=== PATIENT | male | born 1985 | race Caucasian/White ===

== ENCOUNTER 2017-12-03 21:02 | Emergency (ER) | payer MEDICAID ==
[2017-12-03 21:19] VITALS: BP 159/91
[2017-12-03] MEDS ORDERED: DOXYCYCLINE 100 MG PREPACK#2 BTL TAKEHOME ONE (21:21)
[2017-12-03] MEDS ORDERED: DOXYCYCLINE HYCLATE 100 MG CAP/TAB PO ONE (21:25)
[2017-12-03] MEDS ORDERED: ALTEPLASE 100 MG/100 ML VIAL IV ONE (21:28)
--- NOTE | 2017-12-03 21:28 | EDPHY ---
H & P Stated Complaint: dog bite 25 min color dipper, tetanus utd. Time Seen by Provider: 12/03/17 21:08 HPI/ROS: Chief Complaint: Dog bite HPI: 32-year-old male got bit on the right hand by a friend's dog approximately 30 min ago. Was told that the dog is up-to-date on his vaccinations. He is currently taking doxycycline once a day as malaria prophylaxis. He just returned from a trip to [place]. He is up-to-date in his tetanus. He is complaining some mild pain in his right hand. ROS: 10 systems were reviewed and were negative except those elements noted in the HPI. PMH: Denies Social History: No smoking Family History: non-contributory Physical Exam: General: Awake, alert, no acute distress Right hand: Patient has a small puncture wound in the webspace between his thumb and index finger. There is also an overlying abrasion. There is no tissue loss. He has no bony tenderness. He has full flexion and extension of his thumb and forefinger. There is no tenderness along the tendon sheath. There is no erythema. There is no discharge. Sensations intact in all dermatomes. He has 2+ capillary refill. Skin: No rash - Personal History Current Tetanus Diphtheria and Acellular Pertussis (TDAP): Yes - Medical/Surgical History Hx Asthma: No Hx Chronic Respiratory Disease: No Hx Diabetes: No Hx Cardiac Disease: No Hx Renal Disease: No Hx Cirrhosis: No Hx Alcoholism: No Hx HIV/AIDS: No Hx Splenectomy or Spleen Trauma: No Other PMH: shingles - Social History Smoking Status: Never smoked Constitutional: Initial Vital Signs Temperature (C) 37 C 12/03/17 21:15 Heart Rate 80 12/03/17 21:15 Respiratory Rate 16 12/03/17 21:15 Blood Pressure 159/91 H 12/03/17 21:15 O2 Sat (%) 96 12/03/17 21:15 O2 Delivery Mode Room Air Allergies/Adverse Reactions: cefaclor [From Ceclor] Allergy (Verified 12/03/17 21:13) Penicillins Allergy (Verified 12/03/17 21:14) brazil nuts Allergy (Uncoded 12/03/17 21:14) Home Medications: Medication Instructions Recorded Doxycycline Calcium 12/03/17 Medical Decision Making ED Course/Re-evaluation: 32-year-old male with a dog bite to his right hand. He is already taking doxycycline once a day for malaria prophylaxis. Will increase in to twice a day for the next 3 days to cover for the possibility of infection. Will refer him to [facility] for outpatient follow-up. He will return for any concerns. Departure - Departure Disposition: Home, Routine, Self-Care Clinical Impression: Dog bite Condition: Good Instructions: Animal Bite (ED) Additional Instructions: Continue taking your doxycycline as prescribed for your malaria prophylaxis. Take doxycycline twice a day for the next 3 days then resume your once a day dosing. Follow up with her primary care physician for wound check in 3-4 days. Return to the emergency department for increasing redness, worsening pain, discharge from her wound, or any other concerns. Referrals: SHOSHANA RUELAS [Other] - As per Instructions
== END 2017-12-03 21:57 | disposition home or self-care (01) ==
LOC: CED 21:02
DX: S61.451A Open bite of right hand, initial encounter (principal); W54.0XXA Bitten by dog, initial encounter; Y92.9 Unspecified place or not applicable
CPT/HCPCS: J2997